=== PATIENT | male | born 1940 | race Caucasian/White ===

== ENCOUNTER 2024-04-02 08:54 | Inpatient (IN) | payer OTHER, BC ==
[2024-04-02 09:17] VITALS: BMI 22.1
[2024-04-02 09:51] LABS: BASO % 0.2 % (0-2.0); EOS % 1.4 % (0-4.5); HEMATOCRIT 39.9 % (35.4-49); HEMOGLOBIN 13.5 GM/dL (11.7-16.9); LYMPH % 13.2 % (8-40); MCH 31.6 pg (25.7-33.7); MCHC 33.7 g/dl (32.0-35.9); MEAN CELL VOLUME 93.5 fl (80-96); NEUT % 73.2 % (42.8-82.8); PLATELET COUNT 333 10^3/uL (134-434); RBC 4.27 M/mm3 (4.00-5.60); RDW 14.4 % (11.9-15.9); WHITE BLOOD COUNT 12.4 K/mm3 (4.0-10.0)
[2024-04-02 09:59] LABS: INR 0.99 (0.83-1.09); PROTHROMBIN TIME (PATIENT) 11.2 SEC (9.7-13.0)
[2024-04-02 10:01] LABS: ACTIVATED PTT 29.9 SECONDS (25.2-36.5)
[2024-04-02] MEDS ORDERED: ASPIRIN 325 MG TABLET ONE (10:02)
[2024-04-02] MEDS: ASPIRIN 325 MG ENTERIC COATED TABLET (FP) PO ONE (10:06)
[2024-04-02 10:17] LABS: POTASSIUM 4.7 mmol/L (3.5-5.1)
[2024-04-02 10:20] LABS: CALCIUM 8.9 mg/dL (8.5-10.1)
[2024-04-02 10:21] LABS: ALBUMIN 3.6 g/dl (3.4-5.0); BLOOD UREA NITROGEN 12.6 mg/dL (7-18)
[2024-04-02 10:24] LABS: CREATININE 0.9 mg/dL (0.55-1.3)
[2024-04-02 10:25] LABS: BILIRUBIN,TOTAL 1.2 mg/dL (0.2-1); TOT PROT 6.8 g/dl (6.4-8.2)
[2024-04-02] MEDS ORDERED: MAG HYDROX/AL HYDROX/SIMETH 30 ML UNIT-DOSE CUP PO PRN (15:51)
[2024-04-02] MEDS: ATORVASTATIN CA 10 MG TABLET (FP) PO SCH (23:27)
[2024-04-03 08:07] LABS: BASO % 0.4 % (0-2.0); EOS % 1.2 % (0-4.5); HEMATOCRIT 36.8 % (35.4-49); HEMOGLOBIN 12.7 GM/dL (11.7-16.9); LYMPH % 16.9 % (8-40); MCH 32.1 pg (25.7-33.7); MCHC 34.4 g/dl (32.0-35.9); MEAN CELL VOLUME 93.2 fl (80-96); MEAN PLT VOLUME 7.1 fl (7.5-11.1); MONO % 15.5 % (3.8-10.2); PLATELET COUNT 307 10^3/uL (134-434); RBC 3.95 M/mm3 (4.00-5.60); RDW 14.1 % (11.9-15.9); WHITE BLOOD COUNT 9.3 K/mm3 (4.0-10.0)
[2024-04-03 08:31] LABS: POTASSIUM 4.5 mmol/L (3.5-5.1)
[2024-04-03 08:33] LABS: CALCIUM 8.7 mg/dL (8.5-10.1)
[2024-04-03 08:34] LABS: ALBUMIN 3.1 g/dl (3.4-5.0); MAGNESIUM 2.2 mg/dL (1.8-2.4)
[2024-04-03 08:39] LABS: BILIRUBIN,TOTAL 1.4 mg/dL (0.2-1); TOT PROT 6.1 g/dl (6.4-8.2)
[2024-04-03] MEDS: ASPIRIN COATED 81 MG TABLET.EC PO SCH (09:24)
[2024-04-03] MEDS: ENOXAPARIN NA (PORCINE) 40 MG/0.4 ML DISP.SYRIN SQ SCH (09:24)
[2024-04-03] MEDS: PANTOPRAZOLE 20 MG TABLET PO SCH (09:24)
[2024-04-03] MEDS: NAPH,MB-DB/K PH,MBDB POWDER PACKET PO SCH (10:53)
[2024-04-03 13:57] LABS: BILIRUBIN,DIRECT 0.4 mg/dL (0.0-0.2)
[2024-04-03] MEDS: POLYETHYLENE GLYCOL (HEALTHYLAX) 3350 17 GM PACKET PO PRN (16:16)
[2024-04-03] MEDS: METOPROLOL TARTRATE 25 MG TABLET (FP) PO SCH (21:11)
[2024-04-03 21:24] LABS: HEMOGLOBIN 12.5 GM/dL (11.7-16.9); MCH 31.4 pg (25.7-33.7); MCHC 33.7 g/dl (32.0-35.9); MEAN CELL VOLUME 93.1 fl (80-96); MEAN PLT VOLUME 7.6 fl (7.5-11.1); PLATELET COUNT 315 10^3/uL (134-434); RBC 3.98 M/mm3 (4.00-5.60); RDW 14.3 % (11.9-15.9); WHITE BLOOD COUNT 7.3 K/mm3 (4.0-10.0)
[2024-04-03 21:45] LABS: POTASSIUM 4.2 mmol/L (3.5-5.1)
[2024-04-03 21:48] LABS: BLOOD UREA NITROGEN 21.2 mg/dL (7-18)
[2024-04-03 21:50] LABS: CALCIUM 8.5 mg/dL (8.5-10.1)
[2024-04-03 21:53] LABS: CREATININE 1.1 mg/dL (0.55-1.3)
[2024-04-03 21:55] LABS: BILIRUBIN,TOTAL 0.8 mg/dL (0.2-1); TOT PROT 5.8 g/dl (6.4-8.2)
[2024-04-04 08:15] LABS: HEMATOCRIT 37.7 % (35.4-49); MCH 32.1 pg (25.7-33.7); MCHC 34.5 g/dl (32.0-35.9); MEAN CELL VOLUME 93.1 fl (80-96); MEAN PLT VOLUME 7.3 fl (7.5-11.1); PLATELET COUNT 336 10^3/uL (134-434); RBC 4.05 M/mm3 (4.00-5.60); RDW 14.4 % (11.9-15.9); WHITE BLOOD COUNT 8.1 K/mm3 (4.0-10.0)
[2024-04-04 08:26] LABS: POTASSIUM 4.1 mmol/L (3.5-5.1)
[2024-04-04 08:51] LABS: CALCIUM 8.5 mg/dL (8.5-10.1)
[2024-04-04 08:52] LABS: BLOOD UREA NITROGEN 16.9 mg/dL (7-18)
[2024-04-04 08:54] LABS: CREATININE 0.9 mg/dL (0.55-1.3)
[2024-04-04 08:56] LABS: BILIRUBIN,TOTAL 0.8 mg/dL (0.2-1); TOT PROT 5.9 g/dl (6.4-8.2)
[2024-04-04] MEDS: IBUPROFEN 400 MG TABLET (FP) PO PRN (12:45)
[2024-04-06 08:38] LABS: POTASSIUM 4.6 mmol/L (3.5-5.1)
[2024-04-06 08:42] LABS: CALCIUM 8.7 mg/dL (8.5-10.1)
[2024-04-06 08:46] LABS: BILIRUBIN,TOTAL 0.6 mg/dL (0.2-1)
[2024-04-06 08:47] LABS: PHOSPHOROUS 3.2 mg/dL (2.5-4.9)
[2024-04-06] MEDS ORDERED: REGADENOSON 0.4 MG/5 ML PRE-FILLED SYRINGE IVPUSH ONE (09:22)
[2024-04-06] MEDS: REGADENOSON 0.4 MG/5 ML PRE-FILLED SYRINGE IVPUSH ONE (11:20)
[2024-04-07 11:24] VITALS: RESP 18
[2024-04-07 19:32] VITALS: BP 120/76; PULSE 57; TEMP 97.9
== END 2024-04-07 20:36 | disposition short-term general hospital (02) | DRG 315 ==
LOC: JER 08:54 → JERBED 13:10 → J4S 20:12 → OBSVTOIN 04-04 11:49
PROVIDERS: ADMIT Student in an Organized Health Care Education/Training Program; ATTEND Internal Medicine
DX: I31.9 Disease of pericardium, unspecified (principal); C79.51 Secondary malignant neoplasm of bone; I50.30 Unspecified diastolic (congestive) heart failure; J98.11 Atelectasis; I24.89 Other forms of acute ischemic heart disease; E78.5 Hyperlipidemia, unspecified; K21.9 Gastro-esophageal reflux disease without esophagitis; I45.10 Unspecified right bundle-branch block; E83.39 Other disorders of phosphorus metabolism; C61 Malignant neoplasm of prostate; I71.20 Thoracic aortic aneurysm, without rupture, unspecified; K44.9 Diaphragmatic hernia without obstruction or gangrene
CPT/HCPCS: 0241U-QW; 36415; 71045-TC-FY; 71275-TC; 78452-TC; 80053; 82248; 82550; 83735; 84100; 84484; 85025; 85027; 85610; 85651; 85730; 86140; 86850; 86900; 86901; 93005; 93010; 93017; 93306-TC; 99291; A9502; G0378; J2785; Q9967